=== PATIENT | male | born 1950 | race Caucasian/White ===

== ENCOUNTER 2016-11-20 08:11 | Day surgery (SDC) | payer OTHER ==
[~2016-11-20 08:11] MED LIST: BETIMOL5 ML EACH EYE; ENALAPRIL MALEAT5 M1 PO; HUMULIN 70100 UNIT/2 SC; LANTUS100 UNITS/ SC; MULTIVITAMINS1 EACH PO
== END 2016-11-20 13:50 ==
LOC: SRG 08:11 → SHSC 08:12 → ORW 10:33
PROC: 0HB0XZZ Excision of Scalp Skin, External Approach (ICD-10-PCS; principal; 2016-11-20)
DX: L57.0 Actinic keratosis (principal); I10 Essential (primary) hypertension; E78.5 Hyperlipidemia, unspecified; M19.90 Unspecified osteoarthritis, unspecified site; E66.9 Obesity, unspecified; E11.9 Type 2 diabetes mellitus without complications; Z98.890 Other specified postprocedural states; Z90.49 Acquired absence of other specified parts of digestive tract; Z79.899 Other long term (current) drug therapy; Z79.4 Long term (current) use of insulin; Z98.49 Cataract extraction status, unspecified eye
CPT/HCPCS: J0690